=== PATIENT | male | born 1965 | race Caucasian/White ===

== ENCOUNTER → 2016-06-20 | Day surgery (SDC) | payer BC ==
[~2016-06-20] MED LIST: ACETAMINOPHEN PO; ANUCORT-HC25 MG/SUPP PR; ATORVASTATIN CA10 MG PO; DAY TIME COLD-1 EACH PO; DEXILANT60 MG PO; FISH OIL CONC1000 MG PO; GLIMEPIRIDE1 MG PO; IBUPROFEN PO; JANUMET 50-501 UDTAB PO; LEVAQUIN PO; LEVOTHYROXINE50 MC1 PO; MUCINEX DM ER1 EAC1 PO; NEURONTIN100 MG PO; NIGHT TIME COL1 EAC1 PO; PERCOCET5/325 PO; TYLENOL PO; TYLOX 5/500 CAP1 CAP; VITAMIN D35000 UNIT PO; VITAMIN D400 UNI2 PO; ZESTRIL10 MG PO
--- NOTE | ~2016-06-20 | OR ---
Unit #: [id number] #: [id number] Patient: JOSELYN SANFORD [id number] [address] [place], [place] [address] [id number] MR#: [id number] NAME: JOSELYN SANFORD ROOM: Date of Procedure: 06/20/2016 Admission Date: 06/20/2016 Surgeon: Silvano Saini Jr., M.D. : 1965 Attending Physician: Silvano Saini Jr., M.D. OPERATIVE REPORT INDICATIONS FOR PROCEDURE The patient is a 51-year-old white male, who presents desiring a screening colonoscopy. He also had a history of a benign polyp approximately 6 years ago on his last colonoscopy. He is brought in this time at his request for this procedure. He has had his prep at home. He understands the procedure including the risks, including that of perforation and bleeding, and consents. PREOPERATIVE DIAGNOSIS Past history of colon polyps; desires screening colonoscopy, rule out recurrent polyps or pathology. POSTOPERATIVE DIAGNOSIS Diverticulosis of left colon and small polyps of the transverse colon at near the hepatic flexure. These polyps were approximately 1 mm and 2 mm in diameter. ANESTHESIA MAC anesthesia. PROCEDURE PERFORMED Flexible colonoscopy to the distal ileum with biopsies using the cold biopsy forceps of 2 small polyps of the transverse colon on the right side near the hepatic flexure. DESCRIPTION OF PROCEDURE The patient was positioned in [place] position with left side down. After being given MAC anesthesia, digital rectal examination was performed, which revealed no palpable masses or tenderness. No blood or stool within the rectal ampulla. Prostate was normal by palpation. The Olympus colonoscope was advanced through the anal canal up the rectum and retroflexed down to the area of the anorectal region. There were no significant internal hemorrhoids. No evidence of any fissures. The scope was then straightened and advanced up in the rectosigmoid, in the sigmoid and descending colon areas, where there were multiple diverticula without evidence of diverticulitis. The scope was then advanced around the splenic flexure and the transverse colon over the area of the hepatic flexure, where there were 2 small polyps, one approximately 2 to 3 mm, the other 1 mm, which both appeared benign and these were both biopsied. The scope was then advanced around the hepatic flexure and ascending colon down in the area of the cecum. The light from the tip of the scope could be seen transilluminating through right lower quadrant abdominal wall Unit #: [id number] #: [id number] Patient: JOSELYN SANFORD. The scope was advanced up the distal ileum approximately 5 to 10 inches. There was no evidence of any ileitis or inflammatory bowel disease. The scope was slowly removed. There were no tumors except for the polyps described as above. No other polyps or cancer, no AVMs, no evidence of any colitis, or acute diverticulitis. The caliber of the colon appeared normal throughout. The scope was removed. The patient tolerated the procedure well and discharged in satisfactory condition. Dictated by... Silvano Saini Jr., MJj. HUNG/tess TD: 06/20/2016 22:11 JOB #: [id number] OPERATIVE REPORT X Silvano Saini MD X PROCEDURE OPERATIVE NOTE
== END | disposition home or self-care (01) ==
LOC: COPS 05:30
DX: Z12.11 Encounter for screening for malignant neoplasm of colon (principal); D12.3 Benign neoplasm of transverse colon; K57.30 Diverticulosis of large intestine without perforation or abscess without bleeding; J30.9 Allergic rhinitis, unspecified; M19.90 Unspecified osteoarthritis, unspecified site; E11.9 Type 2 diabetes mellitus without complications; E03.9 Hypothyroidism, unspecified; E78.00 Pure hypercholesterolemia, unspecified; Z86.010 Personal history of colon polyps; Z90.89 Acquired absence of other organs; Z90.49 Acquired absence of other specified parts of digestive tract; Z98.890 Other specified postprocedural states; Z88.8 Allergy status to other drugs, medicaments and biological substances; Z79.52 Long term (current) use of systemic steroids; Z79.899 Other long term (current) drug therapy; Z83.3 Family history of diabetes mellitus; Z82.49 Family history of ischemic heart disease and other diseases of the circulatory system; Z80.1 Family history of malignant neoplasm of trachea, bronchus and lung
CPT/HCPCS: 82947; 88305; J2250